=== PATIENT | male | born 1985 | race Caucasian/White ===

== ENCOUNTER 2023-10-04 17:01 | Emergency (ER) | payer BC, SELFPAY ==
[2023-10-04 17:11] VITALS: BP 156/87; PULSE 85; RESP 18; TEMP 36.4; O2SAT 99; BMI 23.0
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
[2023-10-04 18:25] VITALS: PULSE 77; O2SAT 99
[2023-10-04 18:30] VITALS: PULSE 71; O2SAT 98
[2023-10-04] MEDS: MORPHINE 10 MG/ML inj IM (18:40)
[2023-10-04] MEDS: lidocaine HCL 2 % JELLY (TOP) STERILE 6 ML TOPICAL (19:09)
== END 2023-10-04 18:59 | disposition home or self-care (01) ==
PROVIDERS: Emergency Provider Emergency Medicine Emergency Medical Services
DX: R33.9 Retention of urine, unspecified (principal)
CPT/HCPCS: 51798; 95992; 96372; 99283; 99284; J2270

== ENCOUNTER 2023-10-04 19:26 | Emergency (ER) | payer OTHER, BC, SELFPAY ==
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
[2023-10-04] MEDS: HYDROmorphone 0.5 mg/0.5 ml inj 1 MG IM (22:03)
[2023-10-04 22:07] VITALS: BP 102/76; PULSE 71; RESP 16; TEMP 36.9; O2SAT 97
== END 2023-10-04 22:17 | disposition home or self-care (01) ==
LOC: ED 21:37
PROVIDERS: Emergency Provider Emergency Medicine Emergency Medical Services
DX: R51.9 Headache, unspecified (principal); R10.9 Unspecified abdominal pain
CPT/HCPCS: 95992; 96372; 99283; 99284; J1170

== ENCOUNTER 2023-10-20 11:58 | Emergency (ER) | payer OTHER, BC, SELFPAY ==
[2023-10-20 12:17] VITALS: BP 132/91; PULSE 80; RESP 16; TEMP 37.1; O2SAT 99; BMI 23.1
--- NOTE | 2023-10-20 13:19 | PC.NURSE ---
Patient uncomfortable in chair in room 4. Requested to go back to wheelchair. Needed help standing and pivoting. States his helps him at home.
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
[2023-10-20] MEDS: LORazepam 2 MG/ML inj IM (13:45)
[2023-10-20 15:26] VITALS: BP 111/90; PULSE 97; RESP 16; TEMP 37.3; O2SAT 99
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
== END 2023-10-20 15:28 | disposition home or self-care (01) ==
PROVIDERS: Emergency Provider Emergency Medicine; PCP Family Medicine
DX: S39.012A Strain of muscle, fascia and tendon of lower back, initial encounter (principal); V49.9XXA Car occupant (driver) (passenger) injured in unspecified traffic accident, initial encounter
CPT/HCPCS: 72148; 96372; 99284; J2060

== ENCOUNTER 2023-11-08 08:30 | Outpatient (CLI) | payer BC, SELFPAY | END 2023-11-08 08:31 | disposition home or self-care (01) | LOC: INJ CL 08:33 | PROVIDERS: PCP Family Medicine; Visit Provider Family Medicine | DX: M54.16 Radiculopathy, lumbar region (principal); M51.36 Other intervertebral disc degeneration, lumbar region | CPT/HCPCS: 62323; J0702; Q9966 ==

== ENCOUNTER 2023-11-10 14:30 | Outpatient (RCR) | payer OTHER, BC, SELFPAY | END 2024-02-23 13:37 | disposition home or self-care (01) | PROVIDERS: PCP Family Medicine; Visit Provider Family Medicine | DX: M54.2 Cervicalgia (principal); V89.2XXA Person injured in unspecified motor-vehicle accident, traffic, initial encounter; R51.9 Headache, unspecified; M54.50 Low back pain, unspecified; R33.8 Other retention of urine; M25.511 Pain in right shoulder; Z74.09 Other reduced mobility; R26.9 Unspecified abnormalities of gait and mobility; M62.89 Other specified disorders of muscle; R29.898 Other symptoms and signs involving the musculoskeletal system; R26.81 Unsteadiness on feet; Z51.89 Encounter for other specified aftercare | CPT/HCPCS: 97110; 97162 ==

== ENCOUNTER 2024-06-08 12:15 | Outpatient (CLI) | payer BC, SELFPAY | END 2024-06-08 12:16 | disposition home or self-care (01) | PROVIDERS: PCP Family Medicine; Visit Provider Family Medicine | DX: Z00.00 Encounter for general adult medical examination without abnormal findings (principal); Z13.6 Encounter for screening for cardiovascular disorders; Z13.1 Encounter for screening for diabetes mellitus; Z11.59 Encounter for screening for other viral diseases | CPT/HCPCS: 80053; 80061; 86803 ==

== ENCOUNTER 2024-07-06 14:50 | Outpatient (CLI) | payer BC, SELFPAY ==
--- NOTE | 2024-07-06 15:00 | CRLHL7_ITS ---
For Patients: As a result of the Century Cures Act, medical imaging exams and procedure reports are released immediately into your electronic medical record. You may view this report before your referring provider. If you have questions, please contact your health care provider. INDICATION: Pelvic pain COMPARISON: None. TECHNIQUE: Lozoya-scale, color doppler ultrasound of the prostate. FINDINGS: Prostate measures 2.8 x 2.5 x 3.7 cm. Homogeneous parenchyma. No abnormal increased color Doppler flow. No fluid collection or abscess seen. The bladder seen anteriorly appears normal and is only partially filled. No pelvic ascites. IMPRESSION: Normal ultrasound of the prostate gland. Dictated by Geni Shirley MD @ 07/09/2024 10:39:17 AM (Electronically Signed)
== END 2024-07-06 14:51 | disposition home or self-care (01) ==
LOC: US 14:51
PROVIDERS: PCP Family Medicine; Visit Provider Family Medicine
DX: R10.2 Pelvic and perineal pain (principal)
CPT/HCPCS: 76857

== ENCOUNTER 2024-09-27 10:53 | Outpatient (CLI) | payer BC, SELFPAY | END 2024-09-27 10:54 | disposition home or self-care (01) | PROVIDERS: PCP Family Medicine; Visit Provider Family Medicine | DX: R41.3 Other amnesia (principal); Z13.29 Encounter for screening for other suspected endocrine disorder | CPT/HCPCS: 80053; 84443 ==